=== PATIENT | female | born 1985 | race Caucasian/White ===

== ENCOUNTER → 2016-04-06 | Outpatient (CLI) | payer OTHER ==
[~2016-04-06] MED LIST: ACET-1311 PO; ETONMIS VAGRING; IBUP-1050 PO; PRENTAB26 PO
== END | disposition home or self-care (01) ==
LOC: C.PAPS 11:56
PROVIDERS: ATTEND Obstetrics & Gynecology
DX: Z12.4 Encounter for screening for malignant neoplasm of cervix (principal)

== ENCOUNTER 2016-11-11 15:24 | Emergency (ER) | payer OTHER ==
[~2016-11-11] VITALS: Ht 154.9 cm; Wt 55.6 kg
[~2016-11-11 15:24] MED LIST changes: -ETONMIS VAGRING
[2016-11-11 15:36] VITALS: TEMP 36.7; Ht 154.9 cm; Wt 55.6 kg
[2016-11-11] MEDS ORDERED: RABIES VACCINE (IMOVAX) HUMAN DIPL CELL 2.5 INTER.UNIT/ML SYR IM. ONE (16:15)
[2016-11-11] MEDS ORDERED: RABIES IMMUNE GLOBULIN (HUMAN) 150 INTER.UNIT/ML 2 ML VIAL IM. ONE (16:15)
[2016-11-11] MEDS ORDERED: ETONMIS VAGRING (16:17)
--- NOTE | 2016-11-11 16:19 | EMERGENCY ROOM VISIT NOTE ---
ED Visit Note First contact with patient: 15:44 CHIEF COMPLAINT: Need rabies shots HISTORY OF PRESENT ILLNESS: This patient was possibly exposed to rabies when a stray cat came to their house on Wednesday and Wednesday of this week and bit her on the index finger. It was then tested for rabies and found to be positive. She received the results today and was informed that she should undergo the prophylaxis. REVIEW OF SYSTEMS: A complete 6-point Review of Systems was discussed with the patient, with pertinent positives and negatives listed in the History of Present Illness. All remaining Review of Systems questions can be considered negative unless otherwise specified. PMH: The patient is healthy; there is no significant medical or surgical history. SOCIAL HISTORY: Patient lives at home. PHYSICAL EXAM: Vital Signs: Reviewed Nurse's notes. HEAD: Atraumatic, without temporal or scalp tenderness. Heart and lungs normal. SKIN: Normal. NEUROLOGICAL: Alert and cooperative. Sensory and motor functions grossly intact. EMERGENCY DEPARTMENT COURSE: The patient was given rabies immune globulin and rabies vaccine, the former based on weight. Problem List Medical Problems: (1) No Known Active Medical Problems Status: Chronic Current/Historical Medications Scheduled Etonogestrel/Ethinyl Estradiol (Nuvaring), 1 EA VAGRING MONTHLY Allergies Coded Allergies: No Known Allergies (Unverified , 06/06/12) Vital Signs Date Time Temp Pulse Resp B/P (MAP) Pulse Ox O2 Delivery O2 Flow Rate FiO2 11/11/16 16:55 54 16 136/94 97 Room Air 11/11/16 15:36 36.7 91 20 98 Room Air Medications Administered Medications (Trade) Dose Ordered Sig/Carter Route Start Time Stop Time Status Last Admin Dose Admin Rabies Vaccine Human Diploid Cell (Imovax Rabies) 2.5 interunit ONCE ONCE IM. 11/11/16 16:15 11/11/16 16:16 DC 11/11/16 16:40 2.5 INTERUNIT Rabies Immune Globulin (Imogam Rabies Inj) 1,112 interunit ONCE ONCE IM. 11/11/16 16:15 11/11/16 16:16 DC 11/11/16 16:41 1,112 INTERUNIT Departure Information Impression Primary Impression: Rabies, need for prophylactic vaccination against Dispostion Home / Self-Care Condition GOOD Referrals Merrick Adames DO (PCP) Patient Instructions My [facility] Additional Instructions DISCHARGE INSTRUCTIONS: Return for subsequent injections on day day 3, 7, and 14(November 14, and )
[2016-11-11 16:55] VITALS: BP 136/94; PULSE 54; O2SAT 97
== END 2016-11-11 17:11 | disposition home or self-care (01) ==
LOC: C.EDB 15:25 → C.EDD 17:11
DX: Z20.3 Contact with and (suspected) exposure to rabies (principal); Z23 Encounter for immunization; S61.258A Open bite of other finger without damage to nail, initial encounter; W55.01XA Bitten by cat, initial encounter

== ENCOUNTER 2016-11-14 08:07 | Emergency (ER) | payer OTHER ==
[~2016-11-14] VITALS: Ht 154.9 cm; Wt 55.9 kg
[2016-11-14 08:14] VITALS: TEMP 36.7; Ht 154.9 cm; Wt 55.9 kg
[2016-11-14] MEDS ORDERED: RABIES VACCINE (IMOVAX) HUMAN DIPL CELL 2.5 INTER.UNIT/ML SYR IM. ONE (08:45)
[2016-11-14 09:14] VITALS: BP 136/86; PULSE 72; O2SAT 99
--- NOTE | 2016-11-14 15:52 | EMERGENCY ROOM VISIT NOTE ---
ED Visit Note First contact with patient: 08:14 Chief complaint: Rabies exposure HPI: This 31-year-old white female presents for their next injection of Imovax. This is injection # 2. patient denies any rashes or problems from the last injection. No shortness of breath. Pain is 0/10. Initial exposure was a rabid cat. Review of systems: Unchanged from previous exam. Surgical history: Unchanged from previous exam. Medical history: Unchanged from previous exam Current medications: Unchanged from previous exam Allergies: Unchanged from previous exam Social history: Unchanged from previous exam Vitals: Afebrile General: Well-developed, well-nourished, young white female, in no acute distress. She is sitting in a chair. Alert and oriented. Skin:Warm and dry with good turgor. No rashes or lesions. No ecchymosis or erythema. The patient is not diaphoretic. No abrasions. Musculoskeletal: Full motion of the upper extremities without discomfort. Impression: Rabies exposure. Plan: Patient was educated regarding today's findings. She was given Imovax 1 ML IM. Patient was monitored for 20 minutes. No adverse changes were noted. Patient was discharged with instructions to follow-up at the next scheduled injection in 4 days. Tylenol as needed for any discomfort. Benadryl as needed for any itch. Return to the ER for any signs of allergic reaction. Problem List Medical Problems: (1) No Known Active Medical Problems Status: Chronic Current/Historical Medications Scheduled Etonogestrel/Ethinyl Estradiol (Nuvaring), 1 EA VAGRING MONTHLY Allergies Coded Allergies: No Known Allergies (Unverified , 11/14/16) Vital Signs Date Time Temp Pulse Resp B/P (MAP) Pulse Ox O2 Delivery O2 Flow Rate FiO2 11/14/16 09:14 72 16 136/86 99 11/14/16 08:14 36.7 67 18 129/85 99 Room Air Medications Administered Medications (Trade) Dose Ordered Sig/Carter Route Start Time Stop Time Status Last Admin Dose Admin Rabies Vaccine Human Diploid Cell (Imovax Rabies) 2.5 interunit ONCE ONCE IM. 11/14/16 08:45 11/14/16 08:46 DC 11/14/16 08:41 2.5 INTERUNIT Departure Information Referrals Merrick Adames DO (PCP) Patient Instructions [facility]
== END 2016-11-14 09:15 | disposition home or self-care (01) ==
LOC: C.EDB 08:09
DX: Z20.3 Contact with and (suspected) exposure to rabies (principal); Z23 Encounter for immunization

== ENCOUNTER 2016-11-18 15:11 | Emergency (ER) | payer OTHER ==
[~2016-11-18] VITALS: Ht 154.9 cm; Wt 66.1 kg
[2016-11-18 15:13] VITALS: BP 129/78; PULSE 81; TEMP 36.8; O2SAT 97; Ht 154.9 cm; Wt 66.1 kg
[2016-11-18] MEDS ORDERED: RABIES VACCINE (IMOVAX) HUMAN DIPL CELL 2.5 INTER.UNIT/ML SYR IM. ONE (15:30)
--- NOTE | 2016-11-18 15:37 | EMERGENCY ROOM VISIT NOTE ---
History First contact with patient: 15:21 Chief Complaint: RABIES VACCINE REPEAT VISIT Stated Complaint: 3RD RABIES VACCINE History of Present Illness The patient is a 31 year old female who presents to the Emergency Room for her third Imovax injection. The patient has had no adverse reactions to her previous injections. The patient did suffer a cat bite to her right index finger that is reportedly healing well. The patient was bitten by a feral cat that tested positive for rabies. Review of Systems 6 system review was performed and was negative except for pertinent positives and negatives as indicated in history of present illness Past Medical/Surgical History Medical Problems: (1) No Known Active Medical Problems Family History Unremarkable Social History Smoking Status: Never Smoker Alcohol Use: occasionally Marital Status: Housing Status: lives with family Occupation Status: employed Current/Historical Medications Scheduled Etonogestrel/Ethinyl Estradiol (Nuvaring), 1 EA VAGRING MONTHLY Physical Exam Vital Signs Date Time Temp Pulse Resp B/P (MAP) Pulse Ox O2 Delivery O2 Flow Rate FiO2 11/18/16 15:13 36.8 81 18 129/78 97 Room Air Physical Exam CONSTITUTIONAL: Healthy and well nourished. HEENT: Normocephalic, atraumatic. Pupils equal, round and reactive. MUSCULOSKELETAL: Examination of the right index finger shows a completely healed bite wound without erythema or other skin changes. INTEGUMENTARY: No rash or other significant dermatologic conditions noted. NEUROLOGIC: No focal neurologic deficits noted. Medical Decision & Procedures ED Course Patient history and physical exam were performed. Nurse's notes were reviewed. Vital signs were reviewed and were normal. The patient was administered Imovax IM without adverse reaction. The patient will return in one week for her final Imovax injection, sooner with any other concerns. The patient denied any pain at the time of discharge. Medical Decision Blood Pressure Screening Patient's blood pressure: Normal blood pressure Impression Primary Impression: Need for prophylactic vaccination against rabies Departure Information Referrals No Doctor, Assigned (PCP) Patient Instructions My [facility]
[2016-11-18] MEDS ORDERED: ETONMIS VAGRING (16:17)
== END 2016-11-18 15:52 | disposition home or self-care (01) ==
LOC: C.EDB 15:14 → C.EDD 15:52
DX: Z20.3 Contact with and (suspected) exposure to rabies (principal); Z23 Encounter for immunization

== ENCOUNTER 2016-11-25 15:13 | Emergency (ER) | payer OTHER ==
[~2016-11-25] VITALS: Ht 154.9 cm; Wt 55.6 kg
[~2016-11-25 15:13] MED LIST changes: -ACET-1311 PO; +ETONMIS VAGRING; -IBUP-1050 PO; -PRENTAB26 PO
[2016-11-25 15:20] VITALS: TEMP 36.6; Ht 154.9 cm; Wt 55.6 kg
[2016-11-25] MEDS ORDERED: RABIES VACCINE (IMOVAX) HUMAN DIPL CELL 2.5 INTER.UNIT/ML SYR IM. ONE (15:45)
[2016-11-25 16:17] VITALS: BP 158/74; PULSE 67; O2SAT 99
--- NOTE | 2016-11-26 20:18 | EMERGENCY ROOM VISIT NOTE ---
ED Visit Note First contact with patient: 15:17 CHIEF COMPLAINT: I'm here for my final rabies shot. HISTORY OF PRESENT ILLNESS: Ms. Garcia is a 31-year-old white female who ambulates into the ED accompanied by her daughter requesting her last rabies vaccination series injections. She reports she has not had any reactions to her previous injections for her rabies exposure. She is feeling well the last few days and mother denies fevers , chills, sweats, headaches, neck pain, joint pain, shortness of breath, cough, upper respiratory tract symptoms, abdominal pain, nausea, vomiting. REVIEW OF SYSTEMS: As noted above in History of Present Illness. PMH: Status post wisdom teeth extraction CURRENT MEDICATION: control. ALLERGIES TO MEDICATION: Patient denies. SOCIAL HISTORY: Patient is currently employed; she feels safe in her home environment; she denies tobacco use and admits to alcohol use. PHYSICAL EXAM: Vital Signs: Date Time Temp Pulse Resp B/P (MAP) Pulse Ox O2 Delivery O2 Flow Rate FiO2 11/25/16 16:17 67 16 158/74 99 11/25/16 15:20 36.6 67 16 158/74 99 Room Air GENERAL: 31-year-old female in no acute distress, nontoxic-appearing, afebrile and hemodynamically stable. NEUROLOGICAL: Awake, alert and oriented to person, place and time. Answering questions appropriately and following commands. EMERGENCY DEPARTMENT COURSE: Patient is assessed as noted above. Medication list was reviewed. Patient was given 2.5 interunits of rabies vaccination IM. Patient was observed and had no reactions to her injection. Patient was educated about today's findings and instructed on her treatment plan ; she verbalized understanding and agreement with this plan. CLINICAL IMPRESSION: Post exposure rabies prophylaxis. DISPOSITION: Patient discharged to home in stable condition; prior to discharge she was reassessed and objectively reported she was pain and symptom-free. PLAN: Patient was educated on symptoms of rabies and side effect of rabies immunizations. Patient was encouraged to return the ED for any symptoms of rabies or side effects of rabies immunizations.
== END 2016-11-25 16:18 | disposition home or self-care (01) ==
LOC: C.EDB 15:14 → C.EDD 16:18
DX: Z23 Encounter for immunization (principal); Z20.3 Contact with and (suspected) exposure to rabies